=== PATIENT | female | born 1945 | race Caucasian/White ===

== ENCOUNTER 2017-03-09 20:26 | Emergency (ER) | payer OTHER ==
[2017-03-09 20:40] VITALS: RESP 16; TEMP 98.6; O2SAT 96
[2017-03-09] MEDS ORDERED: LET GEL TOPICAL 1 EA SYR TP ONE ×2 (21:08→21:13)
[2017-03-09] MEDS ORDERED: SKIN ADHESIVE (DERMABOND) 1 EACH TP ONE ×3 (21:08→21:47)
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
[2017-03-09] MEDS ORDERED: ER GLUE 1 EA MISC ONE (21:13)
[2017-03-09 22:25] VITALS: BP 132/83; PULSE 74
== END 2017-03-09 22:30 | disposition home or self-care (01) ==
LOC: CED 20:26
PROC: 0HQLXZZ Repair Left Lower Leg Skin, External Approach (ICD-10-PCS; principal; 2017-03-09)
DX: S81.812A Laceration without foreign body, left lower leg, initial encounter (principal); W22.8XXA Striking against or struck by other objects, initial encounter; Y92.044 Garage of boarding-house as the place of occurrence of the external cause